=== PATIENT | female | born 1995 | race Caucasian/White ===

== ENCOUNTER 2018-05-04 20:11 | Emergency (ER) | payer MEDICAID ==
[~2018-05-04] VITALS: Ht 157.5 cm; Wt 49.9 kg
[2018-05-04 20:17] VITALS: BP 104/38
[2018-05-04 20:46] LABS: Urine Bacteria NONE SEEN /hpf (None Seen); Urine Blood Negative /uL (Negative); Urine WBC 3 /hpf (0 - 5)
[2018-05-04 21:20] LABS: Basophils # (auto) 0.1 uL; Eosinophils # (auto) 0.8 uL; Mean Corpuscular Hgb Conc. 31.5 g/dL (32.0-36.0)
[2018-05-04 21:22] LABS: Basophils % (auto) 0.4 % (0.0-2.0); Eosinophils % (auto) 5.1 % (0.0-7.0); Hematocrit 37.2 % (36.0-46.0); Hemoglobin 11.7 g/dL (12.2-16.2); Lymphocytes % (auto) 26.4 % (10.0-50.0); Mean Corpuscular Hemoglobin 20.5 pg (28.0-32.0); Mean Corpuscular Volume 65.3 fL (80.0-100.0); Neutrophils # (auto) 9.2 uL; Neutrophils % (auto) 61.1 % (37.0-80.0); Nucleated Red Blood Cells % 0.1 %; Platelet Count (auto) 377 10^3/uL (140-450); Red Blood Cells 5.69 10^6/uL (4.0-5.20); Red Cell Distribution Width 14.8 % (11.8-14.3); White Blood Cell 15.1 10^3/uL (4.4-10.8)
[2018-05-04 21:38] LABS: Alanine Aminotransferase 16 U/L (13-56); Albumin 3.5 g/dL (3.4-5.0); Anion Gap 4 (5-15); Aspartate Aminotransferase 10 U/L (15-37); BUN/Creatinine Ratio 19.6; Blood Urea Nitrogen 10 mg/dL (7-18); Calcium 8.4 mg/dL (8.5-10.1); Carbon Dioxide 27 mmol/L (21-32); Chloride 104 mmol/L (98-107); GFR African American 194 mL/min; GFR Non-African American 160 mL/min; Glucose 92 mg/dL (74-106); Magnesium 2.1 mg/dL (1.6-2.6); Potassium 3.9 mmol/L (3.5-5.1); Sodium 135 mmol/L (136-145)
[2018-05-04 21:43] LABS: Alkaline Phosphatase 65 U/L (45-117); Bilirubin, Total 0.2 mg/dL (0.2-1.0); Total Protein 6.8 g/dL (6.4-8.2)
== END 2018-05-04 22:54 | disposition left against medical advice (07) ==
LOC: ER 20:11
DX: R07.9 Chest pain, unspecified (principal); Z53.21 Procedure and treatment not carried out due to patient leaving prior to being seen by health care provider
CPT/HCPCS: 36415; 80053; 81001; 81025; 83735; 84443; 84484; 85025; 93005

== ENCOUNTER 2018-05-09 01:46 | Emergency (ER) | payer MEDICAID ==
[~2018-05-09] VITALS: Ht 157.5 cm; Wt 54.4 kg
[2018-05-09] MEDS ORDERED: SODIUM CHLORIDE 0.9% 1,000 ML IV ONE ×4 (02:17→08:22)
[2018-05-09 02:55] LABS: Basophils # (auto) 0.1 uL; Basophils % (auto) 0.4 % (0.0-2.0); Eosinophils # (auto) 0.5 uL; Hemoglobin 10.3 g/dL (12.2-16.2); Mean Corpuscular Hemoglobin 20.4 pg (28.0-32.0)
[2018-05-09 02:57] LABS: Eosinophils % (auto) 2.9 % (0.0-7.0); Hematocrit 32.6 % (36.0-46.0); Lymphocytes # (auto) 3.3 uL; Lymphocytes % (auto) 17.7 % (10.0-50.0); Mean Corpuscular Hgb Conc. 31.5 g/dL (32.0-36.0); Mean Corpuscular Volume 64.9 fL (80.0-100.0); Monocytes # (auto) 1.3 uL; Monocytes % (auto) 7.3 % (0.0-12.0); Neutrophils # (auto) 13.2 uL; Neutrophils % (auto) 71.7 % (37.0-80.0); Platelet Count (auto) 317 10^3/uL (140-450); Red Blood Cells 5.03 10^6/uL (4.0-5.20); White Blood Cell 18.4 10^3/uL (4.4-10.8)
[2018-05-09 03:08] LABS: Alanine Aminotransferase 14 U/L (13-56); Albumin 3.1 g/dL (3.4-5.0); Anion Gap 9 (5-15); Aspartate Aminotransferase 13 U/L (15-37); BUN/Creatinine Ratio 18.8; Blood Urea Nitrogen 9 mg/dL (7-18); Calcium 7.9 mg/dL (8.5-10.1); Carbon Dioxide 21 mmol/L (21-32); Chloride 107 mmol/L (98-107); Glucose 90 mg/dL (74-106); Magnesium 2.2 mg/dL (1.6-2.6); Potassium 4.5 mmol/L (3.5-5.1); Sodium 137 mmol/L (136-145)
[2018-05-09 03:10] LABS: GFR African American > 60 mL/min; GFR Non-African American > 60 mL/min
[2018-05-09 03:13] LABS: Alkaline Phosphatase 53 U/L (45-117); Bilirubin, Total 0.4 mg/dL (0.2-1.0); Total Protein 6.3 g/dL (6.4-8.2)
[2018-05-09] MEDS ORDERED: ACETAMINOPHEN 500 MG TAB PO ONE ×2 (04:30→10:30)
[2018-05-09 04:44] LABS: Urine Bacteria NONE SEEN /hpf (None Seen); Urine Blood Negative /uL (Negative); Urine Specific Gravity 1.011 (1.001-1.035); Urine WBC 1 /hpf (0 - 5)
[2018-05-09] MEDS ORDERED: CEPHALEXIN 250 MG CAP PO ONE (08:30)
[2018-05-09 12:25] VITALS: BP 94/59
== END 2018-05-09 13:38 | disposition home or self-care (01) ==
LOC: EDBD 01:46 → ER 01:47
DX: O26.891 Other specified pregnancy related conditions, first trimester (principal); K04.7 Periapical abscess without sinus; R42 Dizziness and giddiness; Z3A.10 10 weeks gestation of pregnancy
CPT/HCPCS: 36415; 76801; 76817; 80053; 81001; 83735; 84484; 84702; 85025; 93005; 96360; 96361; 99284; J7030